=== PATIENT | female | born 1955 | race Caucasian/White ===

== ENCOUNTER 2020-08-05 16:26 | Outpatient (CLI) | payer BC, SELFPAY ==
--- NOTE | ~2020-08-05 | MM_ITS ---
EXAMINATION: MM screening axel BI w yunior HISTORY: Screening TECHNIQUE: Craniocaudal and mediolateral oblique 3-D tomosynthesis images were obtained and synthetic 2-D images were generated. CAD analysis was submitted and interpreted. COMPARISON: 02/12/2019 BREAST PARENCHYMAL COMPOSITION: There are scattered areas of fibroglandular density. FINDINGS: There is no evidence of suspicious mass, calcification, or architectural distortion to sugg est malignancy in either breast. There has been no suspicious interval change. IMPRESSION: 1. No mammographic evidence of malignancy. 2. Recommend routine screening mammography in one year. BI-RADS Category 1: Negative Reviewed, dictated and finalized at location A.
== END 2020-08-05 16:27 | disposition home or self-care (01) ==
LOC: ANHIMG 16:31
PROVIDERS: PCP Family Medicine; Visit Provider Family Medicine
DX: Z12.31 Encounter for screening mammogram for malignant neoplasm of breast (principal)
CPT/HCPCS: 77063; 77067

== ENCOUNTER 2021-10-18 09:34 | Outpatient (CLI) | payer MEDICARE, SELFPAY ==
--- NOTE | ~2021-10-18 | MM_ITS ---
EXAMINATION: MM screening axel BI w yunior HISTORY: Screening mammogram TECHNIQUE: Craniocaudal and mediolateral oblique 3-D tomosynthesis images were obtained and synthetic 2-D images were generated. CAD analysis was submitted and interpreted. COMPARISON: No prior mammogram is available for comparison at this institution. BREAST PARENCHYMAL COMPOSITION: There are scattered areas of fibroglandular density. FINDINGS: There is a biopsy marker on the left; history of prior bilateral benign breast biopsies. Th ere is no evidence of suspicious mass, calcification, or architectural distortion to suggest malignan cy in either breast. There has been no suspicious interval change. IMPRESSION: 1. No mammographic evidence of malignancy. 2. Recommend routine screening mammography in one year. BI-RADS Category 2: Benign Reviewed, dictated and finalized at location A.
== END 2021-10-18 09:35 | disposition home or self-care (01) ==
LOC: ANHIMG 09:36
PROVIDERS: PCP Family Medicine; Visit Provider Family Medicine
DX: Z12.31 Encounter for screening mammogram for malignant neoplasm of breast (principal)
CPT/HCPCS: 77063; 77067

== ENCOUNTER 2022-12-21 07:54 | Outpatient (CLI) | payer MEDICARE, SELFPAY ==
--- NOTE | ~2022-12-21 | MM_ITS ---
EXAMINATION: MM screening axel BI w yunior HISTORY: Screening TECHNIQUE: Craniocaudal and mediolateral oblique 3-D tomosynthesis images were obtained and synthetic 2-D images were generated. CAD analysis was submitted and interpreted. COMPARISON: Comparison to multiple prior studies sequentially, with oldest reviewed study dated 02/03. BREAST PARENCHYMAL COMPOSITION: The breasts are almost entirely fatty. FINDINGS: There is no evidence of suspicious mass, calcification, or architectural distortion to sugg est malignancy in either breast. There has been no suspicious interval change. IMPRESSION: 1. No mammographic evidence of malignancy. 2. Recommend routine screening mammography in one year. BI-RADS Category 1: Negative Reviewed, dictated and finalized at location A.
== END 2022-12-21 07:55 | disposition home or self-care (01) ==
LOC: ANHIMG 07:58
PROVIDERS: PCP Family Medicine; Visit Provider Family Medicine
DX: Z12.31 Encounter for screening mammogram for malignant neoplasm of breast (principal)
CPT/HCPCS: 77063; 77067

== ENCOUNTER → 2023-01-12 12:08 | Outpatient (CLI) | payer MEDICARE, OTHER, SELFPAY ==
--- NOTE | ~2023-01-12 | DEXA_ITS ---
Bone Density Report Name: KERON DELGADO Age: 67 Sex: Female Ethnicity: White Date of : 1955 Indication: osteopenia; parental hip fracture; height loss; hysterectomy; postmenopausal Referring Provider: Roscoe Berger Study: Bone densitometry was performed. Exam Date: January 12, 2023 Accession number: [id number] Bone Density: Region BMD T-score Z-score Classification AP Spine (L1-L4) 0.747 -2.7 -0.8 Osteoporosis Femoral Neck (Left) 0.623 -2.0 -0.4 Osteopenia Total Hip (Left) 0.810 -1.1 0.2 Osteopenia Femoral Neck (Right) 0.662 -1.7 -0.1 Osteopenia Total Hip (Right) 0.778 -1.3 0.0 Osteopenia Total Hip Mean 0.794 -1.2 0.1 Osteopenia World Health Organization criteria for BMD impression classify patients as: Normal (T-score at or above -1.0), Osteopenia (T-score between -1.0 and -2.5), or Osteoporosis (T-score at or below -2.5). 10-year Fracture Risk: FRAX not reported because: Some T-score for Spine Total or Hip Total or Femoral Neck at or below -2.5 Previous Exams: Region Exam Age BMD T-score BMD Change BMD Change Date g/cm2 vs Baseline vs Previous AP Spine(L1-L4) 01/12/2023 67 0.747 -2.7 -0.248* -0.033* 01/24/2018 62 0.780 -2.4 -0.214* -0.214* 03/01/2004 48 0.994 -0.5 Total Hip(Left) 01/12/2023 67 0.810 -1.1 -0.141* -0.006 01/24/2018 62 0.816 -1.0 -0.135* -0.135* 03/01/2004 48 0.951 0.1 Total Hip(Right) 01/12/2023 67 0.778 -1.3 -0.141* 0.013 01/24/2018 62 0.765 -1.5 -0.155* -0.155* 03/01/2004 48 0.920 -0.2 *Denotes significance at 95% confidence level, LSC for AP Spine = 0.022 g/cm2, LSC for Total Hip = 0.027 g/cm2 Clinical Information Provided by Patient: Parent has had a hip fracture Has used the following medications: Vitamin D, Calcium Has the following medical conditions: Hysterectomy Patient maximum height was 65.5 Menopause Age: 51 No regular weight bearing exercise Onset of menses at age 11 Number of children 1 Impression: The patient has osteoporosis, based on the Total Spine T-score. The patient has risk factors, including: parental hip fracture. The BMD for the AP Spine(L1-L4) decreased, changing by -0.033 since the last DXA exam. Discussion: INCREASED RISK OF FRACTURE. BONE DENSITY IS UNDESIRABLY LOW AT ONE OR MORE SKELETAL SITES, CONSISTENT WITH POSTMENOPAUSAL OSTEOPOROSIS. This roseann
== END ==
PROVIDERS: PCP Family Medicine; Visit Provider Nurse Practitioner Family
DX: Z78.0 Asymptomatic menopausal state (principal); M81.0 Age-related osteoporosis without current pathological fracture; M85.852 Other specified disorders of bone density and structure, left thigh; M85.851 Other specified disorders of bone density and structure, right thigh
CPT/HCPCS: 77080

== ENCOUNTER 2023-12-19 01:21 | Day surgery (SDC) | payer MEDICARE, SELFPAY ==
[2023-10-02 12:12] VITALS: BMI 29.3
[2023-11-28 15:21] VITALS: BMI 29.2
[2023-12-19 09:07] VITALS: BP 163/80; PULSE 73; RESP 16; TEMP 36.2; O2SAT 100
[2023-12-19] MEDS: LACTATED RINGERS 1,000 ML 150 ML IV CONT (09:21)
--- NOTE | 2023-12-19 09:24 | WPDANESEPPF ---
Anes - Initial Pre Proc Eval Procedure: Operation Date: 12/19/23 10:00 Proposed Procedures p Screening Colonoscopy - Jovani Martinez DO Date/Time: 12/19/23 09:24 Surgeon: Jovani Martinez DO Pre Op Diagnosis: Screening for malignant neoplasm of colon Patient Data Age: 68 Gender: F Height: 1.63 m Weight: 81.2 kg Last Vital Signs Temp 36.2 C L 12/19/23 09:07 Pulse 73 12/19/23 09:07 Resp 16 12/19/23 09:07 BP 163/80 H 12/19/23 09:07 Pulse Ox 100 12/19/23 09:07 O2 Del Method Room Air 12/19/23 09:07 Allergies Allergy/AdvReac Type Severity Reaction Status Date / Time No Known Allergies Allergy Verified 12/19/23 09:03 Home Medications Medication Instructions Recorded Confirmed Type lorazepam 0.5 mg tablet 0.5 mg PO BID PRN Anxiety 10/05/21 12/19/23 History naloxone 4 mg/actuation nasal 4 mg intranasal Q3M PRN opioid 10/05/21 12/19/23 Rx spray (Narcan) overdose #2 ea lisinopril 40 mg tablet 40 mg PO DAILY #90 tabs 08/01/23 12/19/23 Rx fluoxetine 20 mg capsule 20 mg PO BID 09/14/23 12/19/23 History triamterene 37.5 0.5 tablet PO QAM #90 tabs 10/23/23 12/19/23 Rx mg-hydrochlorothiazide 25 mg tablet oxycodone 5 mg tablet 5 mg PO Q8H PRN pain #75 tabs 11/07/23 12/19/23 Rx pantoprazole 40 mg tablet,delayed 40 mg PO QHS PRN acid reflux #90 11/07/23 12/19/23 Rx release tabs Patient hx anesthesia problems: none Family hx anesthesia problems: none Results Review: All pre-operative results and documents have been reviewed as part of the pre-operative evaluation. [facility] Past Medical History Medical History Abdominal pain, epigastric Anxiety Back pain CKD (chronic kidney disease) stage 3, GFR 30-59 ml/min Creatinine elevation Dysuria Elevated glucose Erosive osteoarthritis of wrist Fibromyalgia Forearm tendonitis Hypertension Low vitamin B12 level Mixed hyperlipidemia Mouth lesion Osteopenia Otitis externa of left external auditory canal due to fungus (~11/02/18) Pain in left ear (~11/02/18) Pre-diabetes Rash of face Recurrent depression Systemic candidiasis Tenosynovitis, de Quervain Tonsillectomy planned URI (upper respiratory infection) Vitamin D deficiency Surgical History Surgical History Hx of total hysterectomy Family History Family History Father Diabetes mellitus Hypertension Family history of cardiovascular disease Mother Hypertension Family history of cardiovascular disease Family history of coronary artery disease Heart disease Sibling No problems noted. 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
--- NOTE | 2023-12-19 09:54 | PM.IMHP ---
H&P: HPI History of Present Illness Date/Time: 12/19/23 09:54 Chief Complaint: history of colon polyps Narrative: this is a 68-year-old woman who presents for colonoscopy. Her last colonoscopy was 5-6 years ago. She had several polyps removed at that time. She denies any hematochezia or melena. She denies family history of colon cancer. Review of Systems Review of Systems: All systems reviewed & are unremarkable except as noted in HPI and below Constitutional: Constitutional: Denies chills, Denies fever(s), Denies headache(s) and Denies weight loss Eyes: Eyes: Denies change in vision ENT: Denies dizziness, Denies headache(s), Denies neck mass and Denies throat swelling Cardiovascular: Cardiovascular: Denies chest pain, Denies lightheadedness and Denies dyspnea Respiratory: Respiratory: Denies cough, Denies dyspnea and Denies wheezing Gastrointestinal: Gastrointestinal: Denies abdominal pain, Denies change in bowel habits, Denies nausea and Denies vomiting Genitourinary: Genitourinary: Denies hematuria and Denies dysuria Musculoskeletal: Musculoskeletal: Reports as per HPI Integumentary/Breasts: Skin/Breast: Reports as per HPI Neurologic: Denies dizziness and Denies headache(s) Allergic/Immunologic: Allergic/Immunologic: Denies throat swelling and Denies wheezing PMFSH Past Medical History Medical History Abdominal pain, epigastric Anxiety Back pain CKD (chronic kidney disease) stage 3, GFR 30-59 ml/min Creatinine elevation Dysuria Elevated glucose Erosive osteoarthritis of wrist Fibromyalgia Forearm tendonitis Hypertension Low vitamin B12 level Mixed hyperlipidemia Mouth lesion Osteopenia Otitis externa of left external auditory canal due to fungus (~11/02/18) Pain in left ear (~11/02/18) Pre-diabetes Rash of face Recurrent depression Systemic candidiasis Tenosynovitis, de Quervain Tonsillectomy planned URI (upper respiratory infection) Vitamin D deficiency Surgical History Surgical History Hx of total hysterectomy Family History Family History Father Diabetes mellitus Hypertension Family history of cardiovascular disease Mother Hypertension Family history of cardiovascular disease Family history of coronary artery disease Heart disease Sibling No problems noted. 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 Gender identity (if verbalized by the patient): Female Sexual Orientation (if Verbalized by the Patient): Straight or Heterosexual Spiritual care concerns: No Agree to blood products: No Meds Home Medications and Allergies Home Medications Medication Instructions Recorded Confirmed Type lorazepam 0.5 mg tablet 0.5 mg PO BID PRN Anxiety 10/05/21 12/19/23 History naloxone 4 mg/actuation nasal 4 mg intranasal Q3M PRN opioid 10/05/21 12/19/23 Rx spray (Narcan) overdose #2 ea lisinopril 40 mg tablet 40 mg PO DAILY #90 tabs 08/01/23 12/19/23 Rx fluoxetine 20 mg capsule 20 mg PO BID 09/14/23 12/19/23 History triamterene 37.5 0.5 tablet PO QAM #90 tabs 10/23/23 12/19/23 Rx mg-hydrochlor
[2023-12-19 10:29] VITALS: BP 97/40; PULSE 60; RESP 19; O2SAT 97
[2023-12-19 10:39] VITALS: BP 111/48; PULSE 60; RESP 22; O2SAT 100
[2023-12-19 10:49] VITALS: BP 123/55; PULSE 58; RESP 16; O2SAT 100
== END 2023-12-19 11:04 | disposition home or self-care (01) ==
PROVIDERS: PCP Family Medicine; Visit Provider Surgery
PROC: 0DJD8ZZ Inspection of Lower Intestinal Tract, Via Natural or Artificial Opening Endoscopic (ICD-10-PCS; CPT 45378; principal; 2023-12-19 10:00)
DX: Z12.11 Encounter for screening for malignant neoplasm of colon (principal); E78.2 Mixed hyperlipidemia; R73.03 Prediabetes; F41.9 Anxiety disorder, unspecified; I12.9 Hypertensive chronic kidney disease with stage 1 through stage 4 chronic kidney disease, or unspecified chronic kidney disease; N18.30 Chronic kidney disease, stage 3 unspecified; E53.8 Deficiency of other specified B group vitamins; F33.9 Major depressive disorder, recurrent, unspecified; E53.9 Vitamin B deficiency, unspecified; M85.88 Other specified disorders of bone density and structure, other site; E66.9 Obesity, unspecified; Z68.30 Body mass index [BMI] 30.0-30.9, adult; Z79.891 Long term (current) use of opiate analgesic; Z98.890 Other specified postprocedural states; Z86.0100 Personal history of colon polyps, unspecified; Z82.49 Family history of ischemic heart disease and other diseases of the circulatory system
CPT/HCPCS: G0105; J2003; J2704; J7120

== ENCOUNTER 2024-02-06 15:26 | Outpatient (CLI) | payer MEDICARE, SELFPAY ==
--- NOTE | ~2024-02-06 | MM_ITS ---
EXAMINATION: MM screening axel BI w yunior HISTORY: Screening TECHNIQUE: Craniocaudal and mediolateral oblique 3-D tomosynthesis images were obtained and synthetic 2-D images were generated. CAD analysis was submitted and interpreted. COMPARISON: Comparison to multiple prior studies sequentially, with oldest reviewed study dated 02/03. BREAST PARENCHYMAL COMPOSITION: Not dense: There are scattered areas of fibroglandular density. FINDINGS: There is no evidence of suspicious mass, calcification, or architectural distortion to sugg est malignancy in either breast. There has been no suspicious interval change. IMPRESSION: 1. No mammographic evidence of malignancy. 2. Recommend routine screening mammography in one year. BI-RADS Category 1: Negative Reviewed, dictated and finalized at location B. [facility]
== END 2024-02-06 15:27 | disposition home or self-care (01) ==
PROVIDERS: PCP Family Medicine
DX: Z12.31 Encounter for screening mammogram for malignant neoplasm of breast (principal)
CPT/HCPCS: 77063; 77067